=== PATIENT | male | born 1960 | race Caucasian/White ===

== ENCOUNTER 2019-03-13 16:42 | Inpatient (IN) | payer BC, OTHER ==
[~2019-03-13] VITALS: Ht 167.6 cm; Wt 75.0 kg
[2019-03-13] MEDS ORDERED: KETOROLAC 15 MG INJ IV STA (16:53)
[2019-03-13] MEDS ORDERED: SOD CHLORIDE 0.9% 500 ML IV STA (16:53)
--- NOTE | 2019-03-13 17:01 | ERD ---
ER Documentation Chief Complaint Chief Complaint CHEST PAIN SUDDEN ONSET AT 30 MIN UNITIZER. RELEIF WITH NTG, 12 LEAD NEG IN FILD HPI This is a 58-year-old man brought in by EMS for pressure-like chest pain, states episode occurred while he was sitting down and he used multiple tablets of nitroglycerin (5-6) without relief and chest pressure, EMS was called and they administered 324 mg of aspirin and then transported him here. Patient states about 4 to 5 years ago he did have coronary angiography which was read as abnormal but patient denies stent placement. Patient has continued pressure- like left-sided chest pain nonexertional nonradiating but denies shortness of breath, no calf or leg swelling, no diaphoresis, no vomiting or diarrhea. Patient states he is suffering from URI symptoms with chest and nasal congestion for the last 1 week. ROS All systems reviewed and are negative except as per history of present illness. Medications Home Meds Reported Medications Amlodipine Besylate* (Norvasc*) 5 Mg Tablet, 5 MG PO DAILY, TAB 03/13/19 Metformin Hcl* (Metformin Hcl*) 500 Mg Tablet, 500 MG PO WITH BREAKFAST DINNE, #60 TAB 03/13/19 Nitroglycerin* (Nitroglycerin* SL) 0.4 Mg Tab.subl, 0.4 MG SL Q5MIN PRN for CHEST PAIN, BOTTLE 03/13/19 Aspirin* (Aspirin* EC) 81 Mg Tablet.dr, 81 MG PO DAILY, TAB 03/13/19 Lisinopril* (Lisinopril*) 40 Mg Tablet, 40 MG PO DAILY, #30 TAB 03/13/19 Allergies Allergies: Coded Allergies: No Known Allergy (Unverified , 03/13/19) PMhx/Soc CAD, hypertension, diabetes mellitus Physical Exam Vitals Vital Signs Date Temp Pulse Resp B/P (MAP) Pulse Ox O2 O2 Flow FiO2 Time Delivery Rate 03/13/19 98.2 81 18 168/85 99 Room Air 17:23 (112) 03/13/19 98.2 98 18 139/65 99 16:46 (89) Physical Exam GENERAL: Well-developed, well-nourished, well-hydrated, in no apparent distress, looks nontoxic in appearance HEENT: Moist mucous membranes, positive nasal congestion,, no goiter, no jaundice or icterus, extraocular movements intact without pain. No submandibular induration, and no pharyngeal erythema NEURO: Alert and oriented 3, cranial nerves II through XII intact bilaterally, pupils equal round reactive to light, no focal deficits or facial asymmetry, sensation intact distally Strength 5/5 in upper and lower extremities giacomo aterally CARDIAC: Regular rate and rhythm, no murmurs rubs or gallops LUNGS: Clear bilaterally no wheezing crackles or stridor ABDOMEN: Soft nontender, no guarding, no rigidity, no rebound, no psoas sign no obturator sign. Normoactive bowel sounds SKIN: Warm and dry to touch, no abrasions, contusions, or hematomas, no lacerations, no ecchymosis, no target lesions, and without ulcers EXTREMITIES: No clubbing cyanosis or edema, calves are bilaterally symmetrical, no Homans sign, no popliteal cord sign. Distal pulses equal and bilateral PSYCH: Normal affect without agitation or irritability Result Diagram: 03/13/19 1710 03/13/19 1710 Results 24 hrs Laboratory Tests Test 03/13/19 17:10 White Blood Count 17.6 10^3/ul Red Blood Count 4.50 10^6/ul Hemoglobin 13.8 g/dl Hematocrit 39.7 % Mean Corpuscular Volume 88.2 fl Mean Corpuscular Hemoglobin 30.7 pg Mean Corpuscular Hemoglobin Concent 34.8 g/dl Red Cell Distribution Width 12.0 % Platelet Count 277 10^3/UL Mean Platelet Volume 10.2 fl Immature Granulocytes % 0.600 % Neutrophils % 80.5 % Lymphocytes % 10.9 % Monocytes % 7.3 % Eosinophils % 0.2 % Basophils % 0.5 % Nucleated Red Blood Cells % 0.0 /100WBC Immature Granulocytes # 0.100 10^3/ul Neutrophils # 14.2 10^3/ul Lymphocytes # 1.9 10^3/ul Monocytes # 1.3 10^3/ul Eosinophils # 0.0 10^3/ul Basophils # 0.1 10^3/ul Nucleated Red Blood Cells # 0.0 10^3/ul Sodium Level 138 mmol/L Potassium Level 5.0 mmol/L Chloride Level 105 mmol/L Carbon Dioxide Level 21 mmol/L Anion Gap 12 Blood Urea Nitrogen 20 mg/dl Creatinine 0.93 mg/dl Est Glomerular Filtrat Rate mL/min > 60 mL/min Glucose Level 326 mg/dl Calcium Level 10.2 mg/dl Total Bilirubin 0.5 mg/dl Direct Bilirubin 0.00 mg/dl Indirect Bilirubin 0.5 mg/dl Aspartate Amino Transf (AST/SGOT) 31 IU/L Alanine Aminotransferase (ALT/SGPT) 30 IU/L Alkaline Phosphatase 47 IU/L Troponin I < 0.012 ng/ml Total Protein 7.9 g/dl Albumin 4.3 g/dl Globulin 3.60 g/dl Albumin/Globulin Ratio 1.19 Lipase 40 U/L Current Medications Medications Dose Sig/Jason Start Time Status Last (Trade) Ordered Route PRN Stop Time Admin Dose Reason Admin Sodium 500 ml @ Q1H STAT 03/13/19 DC 03/13/19 Chloride 500 mls/hr IV 16:53 17:17 03/13/19 17:52 Ketorolac 15 mg ONCE STAT 03/13/19 DC 03/13/19 Tromethamine IV 16:53 17:18 (Toradol) 03/13/19 16:54 1 mg ONCE STAT 03/13/19 DC 03/13/19 Hydromorphone IV 17:18 17:41 HCl 03/13/19 17:19 (Dilaudid) Ondansetron 4 mg ONCE STAT 03/13/19 DC 03/13/19 HCl (Zofran IV 17:18 17:41 Inj) 03/13/19 17:19 Enalaprilat 1.25 mg ONCE ONCE 03/13/19 DC (Vasotec Iv) IV 18:30 03/13/19 18:31 IV Flush 3 ml PER 03/13/19 UNV (NS 3 ml) PROTOCOL IV 19:00 Ondansetron 4 mg Q6H PRN 03/13/19 UNV HCl (Zofran IV 19:00 Inj) NAUSEA/VOMITI NG 1 tab Q5M PRN 03/13/19 UNV Nitroglycerin SL .CHEST 19:00 PAIN (Nitroglyceri n (Sl Tab) 0.4 Mg) 650 mg Q6H PRN 03/13/19 UNV Acetaminophen PO .PAIN 1-3 19:00 (Tylenol OR TEMP Tab) 1 tab Q6H PRN 03/13/19 UNV Acetaminophen PO .PAIN 4-6 19:00 / Hydrocodone Bitart ([place] (5/325)) Morphine 2 mg Q4H PRN 03/13/19 UNV Sulfate IV .PAIN 19:00 (morphine) 7-10 Procedures/MDM IV line was established 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 Patient was afebrile EKG performed, read by me: 74 bpm, normal sinus rhythm, normal axis, no acute ST segment changes, narrow QRS complex, with good R-wave progression in precordial leads. Chest X-ray 1V Interpreted by me: Soft Tissue: No acute abnormalities Bones: No acute abnormalities Mediastinum/Cardiac Silhouette/Lungs: No acute abnormalities I administered 500 cc normal saline IV and Toradol 15 mg IV x1, patient already received aspirin nitroglycerin, I administered hydromorphone 1 mg IV for continued pain and Zofran 4 mg IV. For hypertension I administered enalapril 1.25 mg IV x1. CBC revealed leukocytosis consistent with active URI, and electrolytes are unremarkable, liver function tests were normal, troponin was negative Patient chest pain improved and he will be admitted to telemetry setting for continued medical management, cardiology consultation Departure Diagnosis: Primary Impression: Chest pain Chest pain type: unspecified Qualified Codes: R07.9 - Chest pain, unspecified Additional Impressions: Hypertension Hypertension type: essential hypertension Qualified Codes: I10 - Essential (primary) hypertension Acute URI Condition: GLORIA Guillaume MD Mar 13, 2019 17:01
[2019-03-13] MEDS ORDERED: ONDANSETRON 4 MG INJ IV STA (17:18)
[2019-03-13] MEDS ORDERED: HYDROmorphONE 1 MG/ML SYG IV STA (17:18)
[2019-03-13] MEDS ORDERED: ASPI-817 PO (17:35)
[2019-03-13] MEDS ORDERED: LISI40TA3 PO (17:35)
[2019-03-13] MEDS ORDERED: AMLO5TAB4 PO (17:36)
[2019-03-13] MEDS ORDERED: METF500T24 PO (17:36)
[2019-03-13] MEDS ORDERED: NITR0.4T32 SL (17:36)
[2019-03-13] MEDS ORDERED: ENALAPRILAT 1.25 MG INJ IV ONE (18:30)
[2019-03-13] MEDS ORDERED: HYDROCODONE/APAP (5/325) TAB PO PRN (19:00)
[2019-03-13] MEDS ORDERED: NITROGLYCERIN (SL) 0.4 MG TAB SL PRN (19:00)
[2019-03-13] MEDS ORDERED: ACETAMINOPHEN 325 MG TAB PO PRN (19:00)
[2019-03-13] MEDS ORDERED: ONDANSETRON 4 MG INJ IV PRN (19:00)
[2019-03-13] MEDS ORDERED: NACL 0.9% 3 ML SYG IV SCH (19:00)
[2019-03-13] MEDS ORDERED: LABETALOL 100 MG TAB PO ONE (20:30)
[2019-03-13] MEDS: LISINOPRIL 20 MG TAB PO SCH (21:26)
[2019-03-13] MEDS: AMLODIPINE 5 MG TAB PO SCH (21:27)
[2019-03-13] MEDS ORDERED: hydrALAzine 20 MG INJ IV ONE (21:30)
[2019-03-13] MEDS ORDERED: LORAZEPAM 0.5 MG TAB PO ONE (21:30)
[2019-03-13] MEDS ORDERED: LORAZEPAM 2 MG INJ IV ONE (22:00)
[2019-03-13 22:05] VITALS: PULSE 101
[2019-03-13 22:49] VITALS: BP 140/77; PULSE 105; RESP 20
[2019-03-13 22:51] VITALS: Ht 167.6 cm; Wt 75.0 kg
[2019-03-13] MEDS: morphine 2 MG INJ IV PRN (23:28)
[2019-03-13] MEDS ORDERED: GLUCOSE GEL 15 GRAM TUBE BUCCAL PRN (23:30)
[2019-03-13] MEDS ORDERED: DEXTROSE 50% 50 ML SYRINGE IV PRN ×2 (23:30)
[2019-03-13] MEDS ORDERED: GLUCOSE GEL 15 GRAM TUBE PO PRN ×2 (23:30)
[2019-03-13] MEDS ORDERED: GLUCAGON 1 MG INJ IM PRN (23:30)
[2019-03-13 23:35] VITALS: BP 141/73; PULSE 104; RESP 20
[2019-03-14] VITALS (7 sets, daily range): BP systolic 119–152; BP diastolic 64–72; PULSE 71–101; RESP 18
--- NOTE | 2019-03-14 00:16 | HP ---
Date/Time of Note Date/Time of Note DATE: 03/14/19 TIME: 00:16 Assessment/Plan VTE Prophylaxis SCD applied (from Nsg): Yes Pharmacological prophylaxis: NA/contraindicated Pharm contraindication: low risk/ambulating Lines/Catheters IV Catheter Type (from Nrsg): [place] Lock Assessment/Plan Hospital Course This is a 58-year-old male being admitted to the telemetry floor for: #1 chest pain: Rule out ACS versus anginal equivalent: We will check cardiac enzymes x3, the first that was negative. EKG nonischemic. Will obtain an echocardiogram. Will consult cardiology . We will check hemoglobin A 1C, lipid panel, TSH #2 coronary artery disease: Patient has a history of CT x2, apparently had a h istory of cardiac thrombus as well. Continue aspirin and antihypertensives. Will check lipid panel, hemoglobin A1c. Check an echocardiogram. #3 diabetes mellitus: Currently only on metformin, we will hold this in case of the procedure. Patient's blood sugars on BMP was elevated will check hemoglobin A1c #4 peripheral arterial disease: Patient had a left lower examinee angiogram. Continue aspirin #5 hypertension: Continue amlodipine, lisinopril monitor blood pressures #6 DVT GI prophylaxis: SCDs, no GI prophylaxis indicated Further treatment strategy will be implemented as per the clinical course. Result Diagram: 03/13/19 1710 03/13/19 1710 Results 24hrs Laboratory Tests Test 03/13/19 17:10 03/13/19 22:25 White Blood Count 17.6 H Red Blood Count 4.50 L Hemoglobin 13.8 L Hematocrit 39.7 L Mean Corpuscular Volume 88.2 Mean Corpuscular Hemoglobin 30.7 Mean Corpuscular Hemoglobin Concent 34.8 Red Cell Distribution Width 12.0 Platelet Count 277 Mean Platelet Volume 10.2 Immature Granulocytes % 0.600 H Neutrophils % 80.5 H Lymphocytes % 10.9 L Monocytes % 7.3 Eosinophils % 0.2 Basophils % 0.5 Nucleated Red Blood Cells % 0.0 Immature Granulocytes # 0.100 H Neutrophils # 14.2 H Lymphocytes # 1.9 Monocytes # 1.3 H Eosinophils # 0.0 Basophils # 0.1 Nucleated Red Blood Cells # 0.0 Sodium Level 138 Potassium Level 5.0 Chloride Level 105 Carbon Dioxide Level 21 Anion Gap 12 Blood Urea Nitrogen 20 Creatinine 0.93 Est Glomerular Filtrat Rate mL/min > 60 Glucose Level 326 H Calcium Level 10.2 Total Bilirubin 0.5 Direct Bilirubin 0.00 Indirect Bilirubin 0.5 Aspartate Amino Transf (AST/SGOT) 31 Alanine Aminotransferase (ALT/SGPT) 30 Alkaline Phosphatase 47 Troponin I < 0.012 Total Protein 7.9 Albumin 4.3 Globulin 3.60 H Albumin/Globulin Ratio 1.19 Lipase 40 Bedside Glucose 303 H HPI/ROS Admit Date/Time Admit Date/Time Mar 13, 2019 at 18:43 Hx of Present Illness Chief complaint: Chest pain This is a 58-year-old man with a history of CT, hypertension, diabetes mellitus, peripheral arterial disease and cardiac thrombus brought in by EMS for pressure- like chest pain, states episode occurred while he was sitting down and he used multiple tablets of nitroglycerin (5-6) without relief and chest pressure, EMS was called and they administered 324 mg of aspirin and then transported him here. Patient states about 4 to 5 years ago he did have coronary angiography where he was found to have stenosis but because he had a thrombus he was not stented and instead put on anticoagulation.. Patient has continued pressure- like left-sided chest pain nonexertional nonradiating but denies shortness of breath, no calf or leg swelling, no diaphoresis, no vomiting or diarrhea. Patient states he is suffering from URI symptoms with chest and nasal congestion for the last 1 week. He also does report that his blood sugars have been elevated at home in the 2-300. Allergies: NKDA Medications: Metformin 500 mg PRN nitroglycerin Amlodipine 5 mg p.o. daily Aspirin 81 mg p.o. daily Lisinopril 40 mg p.o. daily ROS Const: As per HPI Eyes : No pain discharge or redness or change in visual acuity ENT: No pain, sore throat, congestion, congestion, dysphagia or discharge Respiratory: No shortness of breath, cough, sputum, wheezing, or pleuritic pain Cardiovascular: As per HPI GI : no change in appetite, abdominal pain, nausea, vomiting, diarrhea, constipation, or change in the color his stool Genitourinary: No dysuria, hematuria, flank pain , discharge or CVA tenderness Musculoskeletal: No joint pain, back pain, neck pain, restricted range of motion in neck or joints Skin: No rash, bruising or hives Neuro: No headache, dizziness, syncope, seizure, focal weakness Endocrine: No polyuria, polydipsia, temperature intolerance Psych: No hallucination, depression, anxiety or suicidal ideation PMH/Family/Social Past Medical History CT x2 hypertension, diabetes mellitus, peripheral arterial disease cardiac thrombus Coronary artery disease Medications Current Medications IV Flush (NS 3 ml) 3 ml PER PROTOCOL IV ; Start 03/13/19 at 19:00 Ondansetron HCl (Zofran Inj) 4 mg Q6H PRN IV NAUSEA/VOMITING; Start 03/13/19 at 19:00 Nitroglycerin (Nitroglycerin (Sl Tab) 0.4 Mg) 1 tab Q5M PRN SL .CHEST PAIN; Start 03/13/19 at 19:00 Acetaminophen (Tylenol Tab) 650 mg Q6H PRN PO .PAIN 1-3 OR TEMP; Start 03/13/19 at 19:00 Acetaminophen/ Hydrocodone Bitart ([place] (5/325)) 1 tab Q6H PRN PO .PAIN 4-6 Last administered on 03/13/19at 22:28; Admin Dose 1 TAB; Start 03/13/19 at 19:00 Morphine Sulfate (morphine) 2 mg Q4H PRN IV .PAIN 7-10 Last administered on 03/13/19at 23:28; Admin Dose 2 MG; Start 03/13/19 at 19:00 Amlodipine Besylate (Norvasc) 5 mg DAILY PO Last administered on 03/13/19at 21:27; Admin Dose 5 MG; Start 03/13/19 at 20:30 Aspirin (Halfprin) 81 mg DAILY PO ; Start 03/14/19 at 09:00 Lisinopril (Zestril) 40 mg DAILY PO Last administered on 03/13/19at 21:26; Admin Dose 40 MG; Start 03/13/19 at 20:30 Diagnostic Test (Pha) (Accu-Chek) 1 ea 02 XX ; Start 03/14/19 at 02:00 Insulin Aspart (Novolog Insulin Pen) NOVOLOG *MILD* ALGORITHM WITH MEALS BEDTIME SC ; Start 03/14/19 at 08:00 Miscellaneous Information 1 ea NOTE XX ; Start 03/13/19 at 23:30 Glucose (Glutose) 15 gm Q15M PRN PO DECREASED GLUCOSE; Start 03/13/19 at 23:30 Glucose (Glutose) 22.5 gm Q15M PRN PO DECREASED GLUCOSE; Start 03/13/19 at 23 :30 Dextrose (D50w Syringe) 25 ml Q15M PRN IV DECREASED GLUCOSE; Start 03/13/19 at 23:30 Dextrose (D50w Syringe) 50 ml Q15M PRN IV DECREASED GLUCOSE; Start 03/13/19 at 23:30 Glucagon (Glucagen) 1 mg Q15M PRN IM DECREASED GLUCOSE; Start 03/13/19 at 23:30 Glucose (Glutose) 15 gm Q15M PRN BUCCAL DECREASED GLUCOSE; Start 03/13/19 at 23:30 Coded Allergies: No Known Allergy (Unverified , 03/13/19) Past Surgical History Left lower extremity enteroplasty Family History Significant Family History: no pertinent family hx Social History Alcohol Use: none (Half pack per day) Smoking Status: Current every day smoker Drug Use: none Exam/Review of Systems Vital Signs Vitals Vital Signs Date Temp Pulse Resp B/P (MAP) Pulse Ox O2 O2 Flow FiO2 Time Delivery Rate 03/13/19 98.3 104 20 141/73 98 Room Air 23:35 (95) Exam Exam General: Patient is a pleasant male currently lying in bed in no acute distress HEENT: Atraumatic, normocephalic. The pupils are equal, round and reactive. Extraocular motor are intact Neck: Supple with full range of motion. No rigidity or meningismus Chest: Nontender to palpation Lungs: Clear to auscultation bilaterally no crackles rales or wheezing Heart: Normal S1-S2, Regular rhythm and rate. No murmur, S3, or S4 Abdomen: Soft , nontender, nondistended , bowel sounds are present. No guarding no rebound tenderness , No masses or organomegaly. No costovertebral temporal angle mass Extremities: Normal to inspection, no edema no cyanosis Neurologic: Normal mental status, speech normal, cranial nerves II through XII are intact, motor and sensory are intact, Additional Comments EKG 74 bpm, normal sinus rhythm, normal axis, no acute ST segment changes, narrow QRS complex, with good R-wave progression in precordial leads. PROCEDURE: XR 1 view Chest. CLINICAL INDICATION: Chest pain. TECHNIQUE: Portable Single frontal view of the chest was obtained. COMPARISON: There are no similar studies submitted for comparison. FINDINGS: The heart is normal in size. There are mild aortic calcifications. There is no focal consolidation. There is no pleural effusion. No pneumothorax is identified. The osseous structures are intact. There is mild degenerative spondylosis/enthesopathy within the thoracic spine. IMPRESSION: No evidence for acute cardiopulmonary disease. Aortic calcifications. Further findings as detailed above. RPTAT: PP .Brian Mendieta MD, Date Time Electronically viewed and signed by .Brian Mendieta MD, on 03/13/2019 17:36 .F/ CC: GLORIA VELA MD [id number] ANURAG ESPANA Mar 14, 2019 00:16
[2019-03-14] MEDS ORDERED: ACCU-CHEK XX SCH (02:00)
[2019-03-14] MEDS ORDERED: ENOXAPARIN 80 MG/0.8 ML SYG SC SCH (02:30)
[2019-03-14] MEDS ORDERED: ENOXAPARIN 100 MG/ML SYG SC SCH (02:30)
[2019-03-14] MEDS ORDERED: INSULIN ASPART [NOVOLOG] 3 ML PEN SC SCH (08:00)
[2019-03-14] MEDS: LISINOPRIL 20 MG TAB PO SCH (08:11)
[2019-03-14] MEDS: AMLODIPINE 5 MG TAB PO SCH (08:11)
[2019-03-14] MEDS: morphine 2 MG INJ IV PRN (08:12)
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
[2019-03-14] MEDS ORDERED: ASPIRIN (EC) 81 MG TAB PO SCH (09:00)
[2019-03-14] MEDS ORDERED: NOVO3I SC (11:10)
[2019-03-14] MEDS ORDERED: ENOX80DI2 SC (11:10)
[2019-03-14] MEDS ORDERED: CARV3.1260 PO (11:10)
--- NOTE | 2019-03-14 11:13 | PDOCDIS ---
Discharge Instructions DIAGNOSIS Discharge Diagnosis 1 chest pain: NSTEMI 2 coronary artery disease 3 diabetes mellitus 4 peripheral arterial disease 5 hypertension CONDITION [id number] Patient Condition: [id number] Guarded FOLLOW UP/APPOINTMENTS Follow-up Plan Further care and management per [facility] WELLINGTON GOSS NP Mar 14, 2019 11:13
--- NOTE | 2019-03-14 11:24 | DS ---
Date/Time of Note Date/Time of Note DATE: 03/14/19 TIME: 11:19 Discharge Summary Admission/Discharge Info Admit Date/Time Mar 13, 2019 at 18:43 Discharge Date/Time Discharge Diagnosis 1 chest pain: NSTEMI 2 coronary artery disease 3 diabetes mellitus 4 peripheral arterial disease 5 hypertension Patient Condition: Stable Consults 1. Dr. Quinn Lds Hospital Course This is a 58-year-old male with history of [place], hypertension, diabetes, PAD, cardiac thrombus, CAD, who came to the hospital due to reports of chest pain. Patient reports she had chest pain while he was sitting down. He reportedly took multiple tablets of nitroglycerin (5-6 in parenthesis without relief of chest pressure. He subsequently called EMS. He was given patient aspirin and transported to [facility]. States about 4 to 5 years ago he did have coronary angiography and was found to have stenosis but had thrombus there and was not stented but placed on anticoagulation. He was initially found with elevated WBC. He also had troponin drawn which did elevate it was high as 2.3. Lumber Straightened did see the patient. He was placed on beta-jatinder. Echocardiogram was also ordered. He was also placed on statin medication. Patient was advised for left heart cath however due to unavailability of [facility] [employer] at [facility] hims manager did arrange to transfer the patient to [facility] that does have accommodating facility for left heart catheterization. Patient was explained procedure and he was agreeable to it. The plan of care was discussed with the patient. And he did verbalize understanding. Plan to transfer patient to [facility] for further management care. Discussed plan of care with Dr. Joy [place] Meds Active Scripts Insulin Aspart* (Novolog Insulin Pen*) 100 Unit/Ml Soln, 0 UNIT SC WITH MEALS BEDTIME for 30 Days Prov:WELLINGTON GOSS NP 03/14/19 Carvedilol* (Carvedilol*) 3.125 Mg Tablet, 3.125 MG PO BID, #60 TAB Prov:WELLINGTON GOSS NP 03/14/19 Enoxaparin Sodium (Enoxaparin Sodium) 80 Mg/0.8 Ml Syringe, 75 MG SC Q12H for 2 Days Prov:WELLINGTON GOSS NP 03/14/19 Reported Medications Amlodipine Besylate* (Norvasc*) 5 Mg Tablet, 5 MG PO DAILY, TAB 03/13/19 Nitroglycerin* (Nitroglycerin* SL) 0.4 Mg Tab.subl, 0.4 MG SL Q5MIN PRN for CHEST PAIN, BOTTLE 03/13/19 Aspirin* (Aspirin* EC) 81 Mg Tablet.dr, 81 MG PO DAILY, TAB 03/13/19 Lisinopril* (Lisinopril*) 40 Mg Tablet, 40 MG PO DAILY, #30 TAB 03/13/19 Discontinued Reported Medications Metformin Hcl* (Metformin Hcl*) 500 Mg Tablet, 500 MG PO WITH BREAKFAST DINNE, #60 TAB 03/13/19 Follow-up Plan Further care and management per [facility] Primary Care Provider Miranda Dang Time spent on discharge: > 30 minutes Pending Labs Laboratory Tests Test 03/13/19 17:10 03/13/19 22:25 03/14/19 00:11 03/14/19 05:41 White Blood 17.6 12.9 Count 10^3/ul (4.8-10 10^3/ul (4.8-1 .8) 0.8) Red Blood 4.50 4.51 Count 10^6/ul (4.70-6 10^6/ul (4.70- .10) 6.10) Hemoglobin 13.8 13.5 g/dl (14.0-18.0 g/dl (14.0-18. ) 0) Hematocrit 39.7 39.5 % (42.0-52.0) % (42.0-52.0) Mean 88.2 87.6 Corpuscular fl (82.0-101.0) fl (82.0-101.0 Volume ) Mean 30.7 29.9 Corpuscular pg (29.0-33.0) pg (29.0-33.0) Hemoglobin Mean 34.8 34.2 Corpuscular g/dl (32.0-37.0 g/dl (32.0-37. Hemoglobin Conc ) 0) ent Red Cell 12.0 12.3 Distribution % (11.5-14.5) % (11.5-14.5) Width Platelet Count 277 296 10^3/UL (140-41 10^3/UL (140-4 5) 15) Mean Platelet 10.2 10.1 Volume fl (7.4-10.4) fl (7.4-10.4) Immature 0.600 0.400 Granulocytes % % (0.001-0.429) % (0.001-0.429 ) Neutrophils % 80.5 64.8 % (39.0-77.0) % (39.0-77.0) Lymphocytes % 10.9 22.6 % (15.0-51.0) % (15.0-51.0) Monocytes % 7.3 11.2 % (0.0-11.0) % (0.0-11.0) Eosinophils % 0.2 % (0.0-7.0) 0.5 % (0.0-7.0) Basophils % 0.5 % (0.0-2.0) 0.5 % (0.0-2.0) Nucleated Red 0.0 0.0 Blood Cells % /100WBC (0.0-0. /100WBC (0.0-0 0) .0) Immature 0.100 0.050 Granulocytes # 10^3/ul (0.0-0. 10^3/ul (0.0-0 031) .031) Neutrophils # 14.2 8.4 10^3/ul (1.6-7. 10^3/ul (1.6-7 5) .5) Lymphocytes # 1.9 2.9 10^3/ul (0.8-2. 10^3/ul (0.8-2 9) .9) Monocytes # 1.3 1.5 10^3/ul (0.3-0. 10^3/ul (0.3-0 9) .9) Eosinophils # 0.0 0.1 10^3/ul (0.0-0. 10^3/ul (0.0-0 5) .5) Basophils # 0.1 0.1 10^3/ul (0.0-0. 10^3/ul (0.0-0 1) .1) Nucleated Red 0.0 0.0 Blood Cells # 10^3/ul (0.0-0. 10^3/ul (0.0-0 0) .0) Sodium Level 138 135 mmol/L (135-144 mmol/L (135-14 ) 4) Potassium 5.0 4.3 Level mmol/L (3.5-5.1 mmol/L (3.5-5. ) 1) Chloride Level 105 105 mmol/L (97-110) mmol/L (97-110 ) Carbon Dioxide 21 21 Level mmol/L (21-31) mmol/L (21-31) Anion Gap 12 (5-13) 9 (5-13) Blood Urea 20 mg/dl (7-20) 21 Nitrogen mg/dl (7-20) Creatinine 0.93 0.84 mg/dl (0.61-1.2 mg/dl (0.61-1. 4) 24) Est Glomerular > 60 > 60 Filtrat mL/min (>60) mL/min (>60) Rate mL/min Glucose Level 326 366 mg/dl (70-220) mg/dl (70-220) Calcium Level 10.2 9.9 mg/dl (8.4-10.2 mg/dl (8.4-10. ) 2) Total 0.5 0.4 Bilirubin mg/dl (0.2-1.3) mg/dl (0.2-1.3 ) Direct 0.00 0.00 Bilirubin mg/dl (0.00-0.2 mg/dl (0.00-0. 0) 20) Indirect 0.5 0.4 Bilirubin mg/dl (0-1.1) mg/dl (0-1.1) Aspartate Amino 31 IU/L (15-46) 56 Transf (AST/SGO IU/L (15-46) T) Alanine 30 IU/L (13-69) 34 Aminotransferas IU/L (13-69) e (ALT/SGPT) Alkaline 47 55 Phosphatase IU/L (42-121) IU/L (42-121) Troponin I < 0.012 0.168 2.310 ng/ml (0.000-0. ng/ml (0.000-0 ng/ml (0.000-0 120) .120) .120) Total Protein 7.9 6.5 g/dl (6.1-8.1) g/dl (6.1-8.1) Albumin 4.3 3.9 g/dl (3.3-4.9) g/dl (3.3-4.9) Globulin 3.60 2.60 g/dl (1.3-3.2) g/dl (1.3-3.2) Albumin/Globuli 1.19 1.50 n Ratio Lipase 40 U/L (23-300) Bedside 303 Glucose mg/dL (70-220) Magnesium 1.5 Level mg/dl (1.7-2.5 ) Test 03/14/19 05:42 03/14/19 07:59 Hemoglobin A1c 10.7 % (0-5.9) Creatinine 43.20 Kinase MB ng/ml (0.0-2.4) (Mass) Bedside 321 Glucose mg/dL (70-220) WELLINGTON GOSS NP Mar 14, 2019 11:24
--- NOTE | 2019-03-14 12:24 | DS ---
Date/Time of Note Date/Time of Note DATE: 03/14/19 TIME: 12:22 Discharge Summary Admission/Discharge Info Admit Date/Time Mar 13, 2019 at 18:43 Discharge Date/Time Discharge Diagnosis 1 chest pain: NSTEMI 2 coronary artery disease 3 diabetes mellitus 4 peripheral arterial disease 5 hypertension Patient Condition: Guarded Hospital Course This is a 58-year-old male with history of [place], hypertension, diabetes, PAD, cardiac thrombus, CAD, who came to the hospital due to reports of chest pain. Patient reports she had chest pain while he was sitting down. He reportedly took multiple tablets of nitroglycerin (5-6 in parenthesis without relief of chest pressure. He subsequently called EMS. He was given patient aspirin and transported to [facility]. States about 4 to 5 years ago he did have coronary angiography and was found to have stenosis but had thrombus there and was not stented but placed on anticoagulation. He was initially found with elevated WBC. He also had troponin drawn which did elevate it was high as 2.3. Electrical Transmission Engineer did see the patient. He was placed on beta-jatinder. Echocardiogram was also ordered. He was also placed on statin medication. Patient was advised for left heart cath however due to unavailability of Principal Accounts Clerk at [facility] manager location did arrange to transfer the patient to [facility] that does have accommodating facility for left heart catheterization. Patient was explained procedure and he was agreeable to it. The plan of care was discussed with the patient. And he did verbalize understanding. Plan to transfer patient to [facility] for further management care. Discussed plan of care with Dr. Joy ADDENDUM 03/14/19 AT 12:22pm: Patient was plan to transfer to [facility] for left heart cath. Patient did have ambulance scheduled to pick them up at 12:15 PM however patient not want to wait for ambulance. Patient wanted to sign AMA. Patient was advised about consequences of medical noncompliance and severity of his condition. Nursing staff as well as myself discussed with patient. Patient still refused and wanted to leave AGAINST MEDICAL ADVICE. Discussed case with Dr. Joy Home Meds Active Scripts Insulin Aspart* (Novolog Insulin Pen*) 100 Unit/Ml Soln, 0 UNIT SC WITH MEALS BEDTIME for 30 Days Prov:WELLINGTON GOSS MEAT GRINDER 03/14/19 Carvedilol* (Carvedilol*) 3.125 Mg Tablet, 3.125 MG PO BID, #60 TAB Prov:ZULEMA GOSSNELL MEAT GRINDER 03/14/19 Enoxaparin Sodium (Enoxaparin Sodium) 80 Mg/0.8 Ml Syringe, 75 MG SC Q12H for 2 Days Prov:ZULEMA GOSSNELL MEAT GRINDER 03/14/19 Reported Medications Amlodipine Besylate* (Norvasc*) 5 Mg Tablet, 5 MG PO DAILY, TAB 03/13/19 Nitroglycerin* (Nitroglycerin* SL) 0.4 Mg Tab.subl, 0.4 MG SL Q5MIN PRN for CHEST PAIN, BOTTLE 03/13/19 Aspirin* (Aspirin* EC) 81 Mg Tablet.dr, 81 MG PO DAILY, TAB 03/13/19 Lisinopril* (Lisinopril*) 40 Mg Tablet, 40 MG PO DAILY, #30 TAB 03/13/19 Discontinued Reported Medications Metformin Hcl* (Metformin Hcl*) 500 Mg Tablet, 500 MG PO WITH BREAKFAST DINNE, #60 TAB 03/13/19 Follow-up Plan Further care and management per [facility] Primary Care Provider Miranda Dang Time spent on discharge: > 30 minutes Pending Labs Laboratory Tests Test 03/13/19 17:10 03/13/19 22:25 03/14/19 00:11 03/14/19 05:41 White Blood 17.6 12.9 Count 10^3/ul (4.8-10 10^3/ul (4.8-1 .8) 0.8) Red Blood 4.50 4.51 Count 10^6/ul (4.70-6 10^6/ul (4.70- .10) 6.10) Hemoglobin 13.8 13.5 g/dl (14.0-18.0 g/dl (14.0-18. ) 0) Hematocrit 39.7 39.5 % (42.0-52.0) % (42.0-52.0) Mean 88.2 87.6 Corpuscular fl (82.0-101.0) fl (82.0-101.0 Volume ) Mean 30.7 29.9 Corpuscular pg (29.0-33.0) pg (29.0-33.0) Hemoglobin Mean 34.8 34.2 Corpuscular g/dl (32.0-37.0 g/dl (32.0-37. Hemoglobin Conc ) 0) ent Red Cell 12.0 12.3 Distribution % (11.5-14.5) % (11.5-14.5) Width Platelet Count 277 296 10^3/UL (140-41 10^3/UL (140-4 5) 15) Mean Platelet 10.2 10.1 Volume fl (7.4-10.4) fl (7.4-10.4) Immature 0.600 0.400 Granulocytes % % (0.001-0.429) % (0.001-0.429 ) Neutrophils % 80.5 64.8 % (39.0-77.0) % (39.0-77.0) Lymphocytes % 10.9 22.6 % (15.0-51.0) % (15.0-51.0) Monocytes % 7.3 11.2 % (0.0-11.0) % (0.0-11.0) Eosinophils % 0.2 % (0.0-7.0) 0.5 % (0.0-7.0) Basophils % 0.5 % (0.0-2.0) 0.5 % (0.0-2.0) Nucleated Red 0.0 0.0 Blood Cells % /100WBC (0.0-0. /100WBC (0.0-0 0) .0) Immature 0.100 0.050 Granulocytes # 10^3/ul (0.0-0. 10^3/ul (0.0-0 031) .031) Neutrophils # 14.2 8.4 10^3/ul (1.6-7. 10^3/ul (1.6-7 5) .5) Lymphocytes # 1.9 2.9 10^3/ul (0.8-2. 10^3/ul (0.8-2 9) .9) Monocytes # 1.3 1.5 10^3/ul (0.3-0. 10^3/ul (0.3-0 9) .9) Eosinophils # 0.0 0.1 10^3/ul (0.0-0. 10^3/ul (0.0-0 5) .5) Basophils # 0.1 0.1 10^3/ul (0.0-0. 10^3/ul (0.0-0 1) .1) Nucleated Red 0.0 0.0 Blood Cells # 10^3/ul (0.0-0. 10^3/ul (0.0-0 0) .0) Sodium Level 138 135 mmol/L (135-144 mmol/L (135-14 ) 4) Potassium 5.0 4.3 Level mmol/L (3.5-5.1 mmol/L (3.5-5. ) 1) Chloride Level 105 105 mmol/L (97-110) mmol/L (97-110 ) Carbon Dioxide 21 21 Level mmol/L (21-31) mmol/L (21-31) Anion Gap 12 (5-13) 9 (5-13) Blood Urea 20 mg/dl (7-20) 21 Nitrogen mg/dl (7-20) Creatinine 0.93 0.84 mg/dl (0.61-1.2 mg/dl (0.61-1. 4) 24) Est Glomerular > 60 > 60 Filtrat mL/min (>60) mL/min (>60) Rate mL/min Glucose Level 326 366 mg/dl (70-220) mg/dl (70-220) Calcium Level 10.2 9.9 mg/dl (8.4-10.2 mg/dl (8.4-10. ) 2) Total 0.5 0.4 Bilirubin mg/dl (0.2-1.3) mg/dl (0.2-1.3 ) Direct 0.00 0.00 Bilirubin mg/dl (0.00-0.2 mg/dl (0.00-0. 0) 20) Indirect 0.5 0.4 Bilirubin mg/dl (0-1.1) mg/dl (0-1.1) Aspartate Amino 31 IU/L (15-46) 56 Transf (AST/SGO IU/L (15-46) T) Alanine 30 IU/L (13-69) 34 Aminotransferas IU/L (13-69) e (ALT/SGPT) Alkaline 47 55 Phosphatase IU/L (42-121) IU/L (42-121) Troponin I < 0.012 0.168 2.310 ng/ml (0.000-0. ng/ml (0.000-0 ng/ml (0.000-0 120) .120) .120) Total Protein 7.9 6.5 g/dl (6.1-8.1) g/dl (6.1-8.1) Albumin 4.3 3.9 g/dl (3.3-4.9) g/dl (3.3-4.9) Globulin 3.60 2.60 g/dl (1.3-3.2) g/dl (1.3-3.2) Albumin/Globuli 1.19 1.50 n Ratio Lipase 40 U/L (23-300) Bedside 303 Glucose mg/dL (70-220) Magnesium 1.5 Level mg/dl (1.7-2.5 ) Test 03/14/19 05:42 03/14/19 07:59 Hemoglobin A1c 10.7 % (0-5.9) Creatinine 43.20 Kinase MB ng/ml (0.0-2.4) (Mass) Bedside 321 Glucose mg/dL (70-220) WELLINGTON GOSS NP Mar 14, 2019 12:24
--- NOTE | 2019-03-20 06:55 | RADRPT ---
Echocardiogram Report Patient Name: ERA MORALEZPatient ID: [id number] : 1960 (58y 6m)Study Date: 03/14/2019 9:20:36 AM Gender: MAccession #: [id number] Tech: Paulino Parker [facility] Location: [facility] Ref.Physician: GLORIA ADAMS Height(Cm): BSA: Weight(Kg): Quality: GoodOrder Physician: GLORIA ADAMS Account #: Procedures: Echocardiographic Report: Transthoracic echocardiogram with complete 2D, M-Mode, and doppler examination. Indications: Chest Pain. Measurements: 2D/M Mode Doppler Measurement Value Normal Range Measurement Value Normal Range LVIDd 2D 4.1 [ 4.2 - 5.8 ] cm AV Peak Oniel 1.5 [ 100.0 - 170.0 ] cm/sec LVIDs 2D 2.7 [ 2.5 - 4.0 ] cm AV Peak PG 9.0 [ 2.0 - 9.0 ] mmHg LVPWd 2D 1.0 [ 0.6 - 1.0 ] cm LVOT Peak Oniel 1.3 [ 70.0 - 110.0 ] cm/sec IVSd 2D 1.3 [ 0.6 - 1.0 ] cm LVOT Peak PG 7.0 [ 2.0 - 6.0 ] mmHg AoR Diam 2D 2.9 [ 2.6 - 3.4 ] cm MV E Peak Oniel 1.0 [ 60.0 - 130.0 ] cm/sec EDV 2D 74.7 [ 62.0 - 150.0 ] ml MV A Peak Oniel 0.9 [ 100.0 - 120.0 ] cm/sec ESV 2D 25.8 [ 21.0 - 61.0 ] ml MV E/A 1.1 [ 0.8 - 1.5 ] ratio EF 2D 65.5 [ 52.0 - 72.0 ] percent MV Decel Time 199 [ 104 - 258 ] msec LA Dimen 2D 3.6 [ 3.0 - 4.0 ] cm Lat E` Oniel 0.1 [ 10.0 - 15.0 ] cm/sec Lateral E/E` 8.1 [ 1.0 - 2.0 ] ratio Med E` Oniel 0.1 cm/sec MV E/A 1.1 [ 0.8 - 1.5 ] ratio RA Pressure 10.0 mmHg Findings: Left Ventricle: Normal left ventricular systolic function. Normal left ventricular cavity size. Mild concentric left ventricular hypertrophy. Ejection fraction is visually estimated at 60 %. Right Ventricle: Normal right ventricular size. Normal right ventricular systolic function. Left Atrium: The left atrium is normal in size. Right Atrium: The right atrium is normal in size. Mitral Valve: Mild mitral leaflet calcification. Mild mitral annular calcification. Trace mitral regurgitation. Aortic Valve: No hemodynamically significant aortic stenosis by doppler. Aortic cusps appear mildly calcified. Tricuspid Valve: Normal appearance of the tricuspid valve. Unable to obtain RVSP due to minimal presence of tricuspid regurgitation. Pericardium: Normal pericardium with no significant pericardial effusion. Aorta: Normal aortic root. IVC: Normal size with poot respiratory collapse consistent with elevated right atrial pressure. Conclusions: Normal left ventricular systolic function. Normal left ventricular cavity size. Mild concentric left ventricular hypertrophy. Ejection fraction is visually estimated at 60 %. Mild mitral leaflet calcification. Mild mitral annular calcification. Trace mitral regurgitation. No hemodynamically significant aortic stenosis by doppler. Aortic cusps appear mildly calcified. Normal appearance of the tricuspid valve. Unable to obtain RVSP due to minimal presence of tricuspid regurgitation. Electronically Signed By: Kai Stanley 2019-03-15 07:17:55 PDT
== END 2019-03-14 12:42 | disposition left against medical advice (07) | DRG 282 ==
LOC: E/R 16:42 → 6WM 18:43
PROVIDERS: ADMIT Internal Medicine; ATTEND Internal Medicine
DX: I21.4 Non-ST elevation (NSTEMI) myocardial infarction (principal); E11.51 Type 2 diabetes mellitus with diabetic peripheral angiopathy without gangrene; E11.65 Type 2 diabetes mellitus with hyperglycemia; I10 Essential (primary) hypertension; I25.10 Atherosclerotic heart disease of native coronary artery without angina pectoris; E78.5 Hyperlipidemia, unspecified; R07.9 Chest pain, unspecified; F17.200 Nicotine dependence, unspecified, uncomplicated; Z79.4 Long term (current) use of insulin; Z79.82 Long term (current) use of aspirin; I25.2 Old myocardial infarction
CPT/HCPCS: 36415; 71045; 80053; 82553; 82962; 83036; 83690; 83735; 84484; 85025; 93005; 93306; 96374; 96375; J0360; J1170; J1815; J1885; J2060; J2270; J2405; J7040